=== PATIENT | male | born 1980 | race Caucasian/White ===

== ENCOUNTER 2017-10-24 21:11 | Emergency (ER) | payer SELFPAY ==
[2017-10-24 21:32] VITALS: BP 121/67; PULSE 67; RESP 16; TEMP 98.2; O2SAT 99
[2017-10-24] MEDS ORDERED: Tdap Vaccine 0.5 ml Vial (10-64 yrs) IM ONE ×2 (21:41→21:50)
--- NOTE | 2017-10-24 21:48 | ED PDOC ---
Lower Extremity Pain/Injury Time Seen by Provider: 10/24/17 21:32 Chief Complaint (Nursing): Wound Check Chief Complaint (Provider): Right Leg Injury History Per: Patient Onset/Duration Of Symptoms: Days Current Symptoms Are (Timing): Still Present Additional Complaint(s): 36 year old male presents to the ED with right leg pain. Patient tripped and fell and aby piece of metal cut his right leg. He states he pulled out the piece of metal from his leg. Patient has been able to walk since time of injury but has pain when doing so. He took Naprosyn about 20 minutes prior to arrival and he is not sure of his last tetanus booster. PMD: none Past Medical History Reviewed: Historical Data, Nursing Documentation, Vital Signs Vital Signs: Last Vital Signs Temp 98.2 F 10/24/17 21:28 Pulse 67 10/24/17 21:28 Resp 16 10/24/17 21:28 BP 121/67 10/24/17 21:28 Pulse Ox 99 10/24/17 21:28 - Medical History PMH: No Chronic Diseases - Surgical History Surgical History: No Surg Hx - Family History Family History: States: No Known Family Hx - Living Arrangements Living Arrangements: With Family - Social History Current smoker - smoking cessation education provided: No Alcohol: None Drugs: Denies - Immunization History Hx Tetanus Toxoid Vaccination: No (not sure of last booster) - Home Medications Home Medications: Ambulatory Orders Medication Instructions Recorded Cephalexin [Keflex] 500 mg PO TID #21 capsule 10/24/17 Ibuprofen [Motrin Tab] 800 mg PO Q8 PRN #20 tab 10/24/17 - Allergies Allergies/Adverse Reactions: Allergies Allergy/AdvReac Type Severity Reaction Status Date / Time No Known Allergies Allergy Verified 10/24/17 21:28 Review of Systems ROS Statement: Except As Marked, All Systems Reviewed And Found Negative Musculoskeletal: Positive for: Other (right leg injury) Physical Exam - Reviewed Nursing Documentation Reviewed: Yes Vital Signs Reviewed: Yes - Physical Exam Appears: Positive for: Well, Non-toxic, No Acute Distress Head Exam: Positive for: ATRAUMATIC, NORMAL INSPECTION, NORMOCEPHALIC Skin: Positive for: Normal Color. Negative for: Rash Eye Exam: Positive for: Normal appearance Extremity: Positive for: Other (Puncture wound noted to right [place], no active bleeding, mild surrounding soft tissue swelling and tenderness.) Neurologic/Psych: Positive for: Alert, Oriented (x3) - ECG O2 Sat by Pulse Oximetry: 99 (RA) Pulse Ox Interpretation: Normal - Other Rad Right tib/fib x-ray X-Ray: Interpreted by Me, Viewed By Me X-Ray Interpretation: no fx, no dis, no FB Medical Decision Making Medical Decision Making: Time: 1240 Initial Impression: 36 year old male with right leg injury Initial Plan: --Tetanus/Reduced Dipht/Acell Pe 0.5ml --Tibia Fibula Right [RAD] Puncture wound to right leg was cleansed with normal saline and Betadine, bacitracin and bandage applied. Patient aware of x-ray results, all questions answered. Prescriptions given for Keflex and Motrin. Wound care instructions provided, advised follow-up with clinic in 2-3 days. Scribe Attestation: Documented by Nancy Birmingham, acting as a scribe for Rabia Mckay PA-C Provider Scribe Attestation: All medical record entries made by the Scribe were at my direction and personally dictated by me. I have reviewed the chart and agree that the record accurately reflects my personal performance of the history, physical exam, medical decision making, and the department course for this patient. I have also personally directed, reviewed, and agree with the discharge instructions and disposition. Disposition - Clinical Impression Clinical Impression: Puncture wound, Requires a booster tetanus, Contusion of leg - Patient ED Disposition Is Patient to be Admitted: No Counseled Patient/Family Regarding: Studies Performed, Diagnosis, Need For Followup, Rx Given - Disposition Referrals: [facility] [Outside] Disposition: Routine/Home Disposition Time: 22:18 Condition: STABLE Additional Instructions: Ice, elevate and rest the affected area. Take prescription meds as directed. Clean the wound daily with soap and water. Follow-up with clinic in 2-3 days. Prescriptions: Cephalexin [Keflex] 500 mg PO TID #21 capsule Ibuprofen [Motrin Tab] 800 mg PO Q8 PRN #20 tab PRN Reason: Pain, Moderate (4-7) Instructions: Contusion (DC), Diphtheria and Tetanus Toxoids, and Acellular Pertussis Vaccine, Wound Care (DC) Forms: [employer] (Turkmen), [facility] School/Work Excuse Print Language: MAORI
--- NOTE | 2017-10-25 09:35 | RAD ---
PROCEDURE: Radiographs of the right tibia and fibula. HISTORY: trauma COMPARISON: None available. TECHNIQUE: Frontal and lateral views obtained. FINDINGS: BONES: No fracture or destructive lesion. JOINT SPACES: Unremarkable. OTHER FINDINGS: None. IMPRESSION: Unremarkable radiographs of the right tibia and fibula.
== END 2017-10-25 00:03 | disposition home or self-care (01) ==
LOC: H.ER 21:11
DX: S81.831A Puncture wound without foreign body, right lower leg, initial encounter (principal); W26.8XXA Contact with other sharp object(s), not elsewhere classified, initial encounter; Y92.89 Other specified places as the place of occurrence of the external cause

== ENCOUNTER 2018-10-14 23:21 | Emergency (ER) | payer SELFPAY ==
[2018-10-14 23:29] VITALS: TEMP 98.4
--- NOTE | 2018-10-15 02:23 | ED PDOC ---
HPI: Male Pain Time Seen by Provider: 10/14/18 23:53 Chief Complaint (Nursing): Male Genitourinary Chief Complaint (Provider): LEft testicular pain History Per: Patient History/Exam Limitations: no limitations Onset/Duration Of Symptoms: Days Current Symptoms Are (Timing): Still Present Quality Of Discomfort: Dull, Aching Associated Symptoms: Urinary Symptoms (Blood in urine ). denies: Fever, Chills, Nausea, Vomiting, Loss Of Appetite, Back Pain, Constipation Alleviating Factors: None Additional Complaint(s): 37 yo male with no medical problems presents for evaluation of left testicular pain and blood in semen. Pt denies similar in the past. No trauma. Pain began last night, is localized. No fever.chills. No abdominal pain. Past Medical History Reviewed: Historical Data, Nursing Documentation, Vital Signs Vital Signs: Last Vital Signs Temp 98.4 F 10/14/18 23:23 Pulse 82 10/14/18 23:23 Resp 18 10/14/18 23:23 BP 139/86 10/14/18 23:23 Pulse Ox 98 10/14/18 23:23 Primary Care Provider: FAMILY PROVIDER,NO - Medical History PMH: No Chronic Diseases - Surgical History Surgical History: No Surg Hx - Family History Family History: States: No Known Family Hx - Living Arrangements Living Arrangements: With Family - Immunization History Hx Tetanus Toxoid Vaccination: No (not sure of last booster) - Home Medications Home Medications: Ambulatory Orders Medication Instructions Recorded Cephalexin [Keflex] 500 mg PO TID #21 capsule 10/24/17 Ibuprofen [Motrin Tab] 800 mg PO Q8 PRN #20 tab 10/24/17 Doxycycline Monohydrate 100 mg PO BID #20 capsule 10/15/18 - Allergies Allergies/Adverse Reactions: Allergies Allergy/AdvReac Type Severity Reaction Status Date / Time No Known Allergies Allergy Verified 10/24/17 21:28 Review of Systems ROS Statement: Except As Marked, All Systems Reviewed And Found Negative Constitutional: Negative for: Fever, Chills Cardiovascular: Negative for: Chest Pain, Palpitations Respiratory: Negative for: Cough, Shortness of Breath Gastrointestinal: Negative for: Nausea, Vomiting, Abdominal Pain Genitourinary Male: Positive for: Hematuria, Other. Negative for: Dysuria Physical Exam - Reviewed Nursing Documentation Reviewed: Yes Vital Signs Reviewed: Yes - Physical Exam Appears: Positive for: Well, Non-toxic, No Acute Distress Head Exam: Positive for: ATRAUMATIC, NORMAL INSPECTION, NORMOCEPHALIC Skin: Positive for: Normal Color, Warm, DRY Eye Exam: Positive for: Normal appearance ENT: Positive for: Normal ENT Inspection Neck: Positive for: Normal, Painless ROM Cardiovascular/Chest: Positive for: Regular Rate, Rhythm Respiratory: Positive for: Normal Breath Sounds. Negative for: Accessory Muscle Use, Respiratory Distress Male Genital Exam: Positive for: epididymal tenderness, testicular tenderness (L), other ((-) cremesteric reflex ). Negative for: normal genitalia, erythema, scrotum tenderness (R), scrotum tenderness (L), testicular tenderness (R), urethral discharge Back: Positive for: Normal Inspection Extremity: Positive for: Normal ROM Neurological/Psych: Positive for: Awake, Alert, Normal Tone - ECG O2 Sat by Pulse Oximetry: 98 Pulse Ox Interpretation: Normal Medical Decision Making Medical Decision Making: Time: 0247 US of testicles Findings: Right testicle measures 4x2x3 cm. Normal right testicular flow. The right epididymis measures 0.9x0.7x1 cm. The left testicle measures 4x1.9x2.4 cm. Homogeneous echotexture of the left testicle. The left testicular flow. Enlarged left epididymal tail measuring 1.4x1.4x1.6 cm. Unremarkable left epididymal head measuring 0.8x0.7x1 cm. Impression: Acute left epididymitis. No evidence of testicular torsion. Disposition - Clinical Impression Clinical Impression: Epididymitis - Patient ED Disposition Is Patient to be Admitted: No Counseled Patient/Family Regarding: Diagnosis, Need For Followup, Rx Given - Disposition Disposition: Routine/Home Disposition Time: 02:33 Condition: GOOD Prescriptions: Doxycycline Monohydrate 100 mg PO BID #20 capsule Instructions: Epididymitis (DC) Forms: [employer] (Brazilian) Print Language: SENEGALESE
[2018-10-15] MEDS ORDERED: cefTRIAXone (Rocephin) 250 mg Inj IM STA (02:32)
[2018-10-15] MEDS ORDERED: cefTRIAXone (Rocephin) 250 mg Inj ONE (02:55)
[2018-10-15] MEDS ORDERED: Lidocaine Hydrochloride 1% 10 ML ONE (02:55)
[2018-10-15 03:00] VITALS: BP 118/78; PULSE 72; RESP 16
[2018-10-15 03:03] VITALS: O2SAT 98
--- NOTE | 2018-10-15 13:30 | US ---
Date of service: 10/15/2018 HISTORY: left sided pain TECHNIQUE: Realtime sonography through the scrotum with color and doppler flow. COMPARISON: None Available. FINDINGS: RIGHT TESTICLE: Measures 2 x 3 x 4 cm. Normal echotexture and flow. RIGHT EPIDIDYMIS: Epididymal head measures 7 x 9 x 10 cm. Grossly unremarkable appearance with normal flow. LEFT TESTICLE: Measures 1.9 x 2.4 x 4 cm. Normal echotexture and flow. LEFT EPIDIDYMIS: Epididymal head measures 8 x 7 x 10 cm. Grossly unremarkable appearance with normal flow. Epididymal tail: 1.4 x 1.4 x 1.6 cm. Heterogeneous and hypervascular consistent with epididymitis. HYDROCELE: Trace, bilateral and likely physiological. VARICOCELE: None. OTHER FINDINGS: None. IMPRESSION: Unilateral, left epididymitis. Negative study for testicular torsion, orchitis or testicular mass. Concordant findings (preliminary report) provided by [facility].
== END 2018-10-15 03:20 | disposition home or self-care (01) ==
LOC: H.ER 23:21
DX: N45.1 Epididymitis (principal)
CPT/HCPCS: 87086; 87181; 87491; 87591; 93975; 96372; 99283; J0696